=== PATIENT | female | born 1980 | race American Indian/Alaskan Native ===

== ENCOUNTER 2017-11-01 11:48 | Emergency (ER) | payer OTHER ==
[2017-11-01 12:02] VITALS: O2SAT 100
--- NOTE | 2017-11-01 13:30 | C.PDOC ---
History Of Present Illness 37 year old female presents to the ED for evaluation of left hip pain. Patient reports she feel yesterday at a bus stop hit her left hip and had a small laceration. Patient reports she went to a urgent care center where she was only diagnosed and discharged home. 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 Patient denies weakness, numbness, LOC, back pain. Time Seen by Provider: 11/01/17 12:46 Chief Complaint (Nursing): Lower Extremity Problem/Injury History Per: Patient History/Exam Limitations: no limitations Onset/Duration Of Symptoms: Days Current Symptoms Are (Timing): Still Present Recent travel outside of the [place]: No Additional History Per: Patient - Hip Description Of Injury: Fell, Tripped Past Medical History Reviewed: Historical Data, Nursing Documentation, Vital Signs Vital Signs: Last Vital Signs Temp 97.8 F 11/01/17 15:00 Pulse 54 L 11/01/17 15:00 Resp 18 11/01/17 15:00 BP 146/89 11/01/17 15:00 Pulse Ox 100 11/01/17 21:05 - Medical History PMH: HTN Surgical History: No Surg Hx Family History: States: Unknown Family Hx - Social History Hx Alcohol Use: No Hx Substance Use: No - Immunization History Hx Tetanus Toxoid Vaccination: Yes (2018) Hx Influenza Vaccination: No Hx Pneumococcal Vaccination: Yes Review Of Systems Constitutional: Negative for: Fever, Chills Cardiovascular: Negative for: Chest Pain, Palpitations Respiratory: Negative for: Cough, Shortness of Breath Gastrointestinal: Negative for: Nausea, Vomiting, Abdominal Pain Musculoskeletal: Positive for: Leg Pain (left hip) Skin: Positive for: Rash Neurological: Negative for: Weakness, Numbness Physical Exam - Physical Exam Appears: Non-toxic, No Acute Distress Skin: Normal Color, Warm, Dry Head: Atraumatic, Normacephalic Eye(s): bilateral: Normal Inspection Nose: No Discharge, No Deformity Oral Mucosa: Moist Neck: Normal ROM, Supple Chest: Symmetrical Cardiovascular: Rhythm Regular, No Murmur Respiratory: Normal Breath Sounds, No Rales, No Rhonchi, No Wheezing Gastrointestinal/Abdominal: Soft, No Tenderness, No Guarding, No Rebound Extremity: Normal ROM, Tenderness (left hip area), No Pedal Edema, No Calf Tenderness, No Deformity, No Swelling, Other (small 1.5 closed laceration, no active bleeding ) Neurological/Psych: Oriented x3, Normal Speech, Normal Cognition Gait: Steady ED Course And Treatment O2 Sat by Pulse Oximetry: 100 (On RA) Pulse Ox Interpretation: Normal - Other Rad left hip xray X-Ray: Viewed By Me, Read By Radiologist Interpretation: Accession No. : [id number]. Patient Name / ID : DOM Pfeiffer / [id number]. Exam Date : 11/01/2017 13:46:16 ( Approved ). Study Comment : Sex / Age : F / 37Y. Creator : Martha Briceno MD. Dictator : Martha Briceno MD. General Expeditor : Parking Regulation Enforcement Officer : Martha Briceno MD. Approver2 : Report Date : 11/01/2017 14:27:04. My Comment : . Indication : Fall. Left hip with pelvis. Comparison: None available. Findings: No acute displaced fracture or dislocation identified. Faintly sclerotic 9 mm focus within the right proximal femur (near the lesser trochanter), nonspecific. Sacroiliac joints appear intact. Mild constipation. Pelvic calcification, likely phlebolith. Soft tissues appear unremarkable. No evidence of radiopaque foreign body. Impression: No acute displaced fracture or dislocation evident. If high clinical index of suspicion, suggest cross- sectional imaging for further evaluation. Otherwise, if symptoms persist or if there is continued clinical concern, x-ray follow-up in 7-10 days should be considered. Progress Note: Patient is ambulatory in ED with minimal discomfort. She is stable to be d/c home with PMD/Clinic/Ortho follow up. Laceration - Laceration Repair No standard instances Wound Length (In cm): 1.5 Description Of Wound: Linear Wound Cleansed With: Sterile Saline Wound Examination: Irrigated With Saline Wound Closure: Steri Strips, Skin Glue Medical Decision Making Medical Decision Making: Impression: left hip pain Plan: * POC - negative Disposition - Disposition Disposition: HOME/ ROUTINE Disposition Time: 14:34 Condition: STABLE Additional Instructions: Follow up with your PMD within 1-2 days. Return to ED if feel worse. 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 - Scribe Statement The provider has reviewed the documentation as recorded by the Scribe Arthur Trimble All medical record entries made by the Scribe were at my direction and personally dictated by me. I have reviewed the chart and agree that the record accurately reflects my personal performance of the history, physical exam, medical decision making, and the department course for this patient. I have also personally directed, reviewed, and agree with the discharge instructions and disposition.
--- NOTE | 2017-11-01 14:28 | RAD ---
Indication: Fall Left hip with pelvis Comparison: None available Findings: No acute displaced fracture or dislocation identified. Faintly sclerotic 9 mm focus within the right proximal femur (near the lesser trochanter), nonspecific. Sacroiliac joints appear intact. Mild constipation. Pelvic calcification, likely phlebolith. Soft tissues appear unremarkable. No evidence of radiopaque foreign body. Impression: No acute displaced fracture or dislocation evident. If high clinical index of suspicion, suggest cross-sectional imaging for further evaluation. Otherwise, if symptoms persist or if there is continued clinical concern, x-ray follow-up in 7-10 days should be considered.
[2017-11-01 15:25] VITALS: BP 146/89; PULSE 54; RESP 18; TEMP 97.8
== END 2017-11-01 15:00 | disposition home or self-care (01) ==
LOC: C.ER 11:48
DX: S71.012A Laceration without foreign body, left hip, initial encounter (principal); S70.02XA Contusion of left hip, initial encounter; W01.0XXA Fall on same level from slipping, tripping and stumbling without subsequent striking against object, initial encounter